=== PATIENT | male | born 1995 | race African-American/Black ===

== ENCOUNTER 2016-04-12 16:31 | Emergency (ER) | payer OTHER ==
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
[2016-04-12 19:48] VITALS: BP 137/73
== END 2016-04-12 19:48 | disposition home or self-care (01) ==
LOC: ER 16:31
DX: F07.81 Postconcussional syndrome (principal)
CPT/HCPCS: 70450; 99284